=== PATIENT | male | born 1980 | race Caucasian/White ===

== ENCOUNTER 2021-05-06 15:14 | Inpatient (IN) | payer OTHER, SELFPAY ==
[2021-05-06 16:35] VITALS: BP 110/56; PULSE 70; RESP 18; TEMP 36.4; O2SAT 98
[2021-05-06 18:00] VITALS: BP 110/66; PULSE 70; RESP 18; TEMP 36.4; O2SAT 98
--- NOTE | 2021-05-07 | ECG_ITS ---
Test Reason : QTC PRO Blood Pressure : / mmHG Vent. Rate : 069 BPM Atrial Rate : 069 BPM P-R Int : 134 ms QRS Dur : 082 ms QT Int : 390 ms P-R-T Axes : 069 079 058 degrees QTc Int : 417 ms Sinus rhythm with marked sinus arrhythmia Otherwise normal ECG When compared with ECG of 30-MAY-2018 21:28, No significant change was found Referred By: Jessica Edwards Electronically Signed By:TYRONE SANDOVAL
--- NOTE | 2021-05-07 00:26 | PC.ADMIT ---
41 year old male on a CV presented from [facility] with suicidal ideation in the context of recent substance abuse. Patient is disheveled, dysphoric, minimally engaging in interview. South African speaking only. [employer] utilized for assessment. Chief complaint, I want methadone. Reports suicidal ideation with a plan to OD, contracts for safety on the unit. Reports I feel good about his recent suicide attempt. He disclosed his stressors as his recurrent substance abuse (heroin, crack/cocaine and marijuana) and homelessness. Reports AH, denies VH. States that he prefers to sleep and discontinue intake, unit orientation not completed due to patient's mental status and refusal. Orders received per provider covering. Safety checks in place. Agrees to come to staff with needs/concerns.
[2021-05-07 08:15] VITALS: BP 112/68; PULSE 55; RESP 14; TEMP 36.7; O2SAT 97
[2021-05-07 10:21] VITALS: BP 122/74; PULSE 91
[2021-05-07] MEDS: LORazepam 1 MG TABLET PO ×2 (10:21→14:43)
[2021-05-07] MEDS: cloNIDine HCL 0.1 MG TABLET PO ×2 (10:21→14:43)
[2021-05-07] MEDS: Multivitamin TABLET 1 TAB PO (12:40)
[2021-05-07 14:43] VITALS: BP 113/87; PULSE 59
[2021-05-07] MEDS: methADONE HCl 20 MG/2 ML ORAL.CONC 25 MG PO (15:07)
[2021-05-07 16:15] VITALS: BP 105/68; PULSE 80; TEMP 37.1
--- NOTE | 2021-05-07 17:07 | HO.ADDICT_ITS ---
History of Present Illness Date of Service: 05/07/21 Chief Complaint: Major depressive disorder Reason for Consult: Patient requesting re-initiation on methadone therapy. He had been admitted as a transfer from [facility], where he presented with MDD. Requesting physician: Jessica Edwards Discussed with referring provider: Yes Sources of Information: patient interviewed, chart reviewed and crisis/core team assessment reviewed Additional Sources of Information: Patient's RN, Marybeth. [facility] Narrative: Patient is a 41-year-old male, Namibian-speaking only. This filing writer met with patient, along with his RN, who speaks Namibian and served as director medical affairs, as well as addiction RN. Patient is currently homeless. Reports he is in active opioid withdrawals. Reports doing large quantities of heroin, more than 10 bags daily, as well as crack cocaine, and marijuana. Describes active withdrawal symptoms including general body aches, malaise, hot and cold flashes, yawning, anxiety and irritability. Methadone does was verified at 77 mg at an Clinic located on [address] [facility] in [facility]. They reported he last received his dose in December of this year. Patient reports that he did well while on methadone, but that he had relapsed. He is requesting to be started back on it today. Past Psychiatric History: Patient has several scripts in [place] from psychiatrist at [facility] dated in August of this year as well as September of this year. Patient did not elaborate or report any inpatient level of care is to this filing writer. Medical Evaluation Reviewed: Yes Personal & Social History: Patient currently homeless. Review of Systems Review of Systems Unable to obtain a full review of systems due to patient's mental state as well as active opioid withdrawals. Diagnostics Vital Signs (24Hr): Vital Signs - 24 hr 05/06/21 18:00 05/07/21 08:15 05/07/21 10:21 Temperature 97.5 F 98.1 F Pulse Rate 70 55 91 Respiratory Rate 18 14 Blood Pressure 110/66 112/68 122/74 Pulse Oximetry 98 97 05/07/21 14:43 05/07/21 16:15 Temperature 98.8 F Pulse Rate 59 80 Respiratory Rate Blood Pressure 113/87 105/68 Pulse Oximetry Labs Labs: No tox screen was available from either this facility or [facility]. EKG EKG: reviewed EKG Comment: EKG completed earlier today, shows QTC of 417. Mental Status Exam Mental Status Exam Narrative: Unable to obtain a full mental status exam due to patient's withdrawals and somnolence. He did appear to experiencing withdrawals, including restless legs, body aches, yawning, clammy skin, anxiety. A somewhat disheveled appearance unkempt. Poor eye contact. Motor activity was generally calm, however did appear to have some restless legs. [place] in behavior appeared to be calm, somewhat somnolent. Speech was fluent and unimpaired. Mood and affect depressed. Judgment and insight poor. Ambulation not observed. Unable to fully assess for hallucinations, SI, HI, delusional thoughts. Medications Medications Current Medications Generic Name Dose Route Start Last Admin Trade Name Freq PRN Reason Stop Dose Admin Acetaminophen 650 mg 05/07/21 09:40 Acetaminophen 325 Mg Tablet PO Q6H PRN Headache/Pain Mild Scale (1-3) Al Hydroxide/Mg Hydroxide 30 ml 05/07/21 09:40 Magnesium Hydrox/Alum Hydrox 30 Ml Oral.Susp PO Q6H PRN Heartburn/Nausea Clonidine HCl 0.1 mg 05/07/21 10:15 05/07/21 14:43 Clonidine Hcl 0.1 Mg Tablet PO 0.1 mg TID RANDI Administration Protocol Hydroxyzine HCl 25 mg 05/07/21 09:40 Hydroxyzine Hcl 25 Mg Tablet PO BEDTIME PRN Anxiety Lorazepam 1 mg 05/07/21 10:11 05/07/21 14:43 Lorazepam 1 Mg Tablet PO 1 mg Q4H PRN Administration withdrawal Magnesium Hydroxide 30 ml 05/07/21 09:40 Milk Of Magnesia 30 Ml Oral.Susp PO DAILY PRN Constipation Methadone HCl 25 mg 05/08/21 09:00 Methadone Hcl 20 Mg/2 Ml Oral.Conc PO DAILY RANDI Multivitamins/Vitamin C 1 tab 05/07/21 10:30 05/07/21 12:40 Multivitamin Tablet PO 1 tab DAILY RANDI Administration Trazodone HCl 50 mg 05/07/21 09:40 Trazodone Hcl 50 Mg Tablet PO BEDTIME PRN Insomnia Allergies Allergies Allergy/AdvReac Type Severity Reaction Status Date / Time ibuprofen [IBUPROFEN] Allergy Unknown UNK Unverified 05/15/20 19:34 Assessment & Plan Assessment & Plan (1) Opioid use disorder, severe, dependence: Status: Acute Code(s): F11.20 - Opioid dependence, uncomplicated Assessment and Plan: Patient appears to be experiencing opioid withdrawals. Patient has reported he has taken methadone in the past with positive affect. As per RN, patient was confirmed to be a patient at and methadone Clinic, with a dose of 77 mg daily, as recently as December 2020. (2) Cocaine use disorder: Status: Acute Code(s): F14.10 - Cocaine abuse, uncomplicated Assessment and Plan: Patient reports he uses large amounts of cocaine daily, along with heroin. Assessment and Plan: 1. Give methadone 25mg now. 2. Start methadone 25mg daily, on 05/08/21. 3. Patient will most likely require methadone titration up to an effective dose while here. 4. Addiction RN was present, and is aware patient will need to be referred back to [facility] clinic upon discharge. 5. Please note, upon discharge patient will require a last dose letter stating date and dose of last methadone administration while inpatient. This is a requirement of methadone clinic, so as to ensure continuous dosing schedule without interruption. This has been shared with provider Lesia Santiago APRN, via secure electronic messaging. Thank you. Greater than 50% of the session was spent on counseling and/or coordination of care Patient educated on: diagnosis, medication risk/benefits, ECT and therapeutic strategies Informed Consent: understands and further education needed PMFSH Past Medical History Psychiatric History: Substance Abuse History (Heroin, crack cocaine, marijuana.) Family History Pertinent family history: unknown at this time. Social History Social History Household Members: None Housing: Homeless Do you presently have visiting nurse or other home services: No Patient Tobacco Use Status: Current someday Tobacco user Tobacco use type: Cigarette Years Smoked: I don't remember. Smoked in Last 30 Days: Yes Patient Interested in Nicotine Replacement: No Patient Given Instructions on How to Stop Smoking: No Second Hand Smoke Exposure: No Use of substances other than those prescribed or required for medical reasons: Yes Substance Use Type: Crack/Cocaine, Heroin and Marijuana Substance Use Frequency: Daily Last Used Substance Other:: 05/05/21 Currently Displaying Signs/Symptoms of Drug Intoxication Withdrawal: No Any prior treatment program specific to substance use: Yes ( I don't remember when, but I did. ) Have you been hit, kicked, punched, or otherwise hurt by someone within the past year? If so, by whom?: No Do you feel safe in your current relationship?: No Current Relationship Is there a partner from a previous relationship who is making you feel unsafe now?: No Are you made to feel afraid or neglected: No Spiritual Healthcare Practices: Unable to assess due to mental status Advance Directives: No Advance Directives Information Provided: Yes Do you have thoughts of harming others: None Do you have a plan to hurt others: No Plan Recently lost weight without trying: Unsure How much weight loss: Unsure Eating poorly because of decreased appetite: No Nutrition screen score: 4 Nutrition Risks: No Nutritional Risk Poor oral hygiene: Yes service: No Sexual orientation: Straight/Heterosexual
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
[2021-05-07 20:00] VITALS: RESP 16
--- NOTE | 2021-05-07 23:35 | PM.EVENT ---
Event Note Date of Service: 05/07/21 Event Note: attempted to see pt for admission H&P but pt was sleeping
[2021-05-08 03:08] VITALS: BP 119/74; PULSE 64; RESP 16; TEMP 36.4; O2SAT 98
[2021-05-08 08:00] VITALS: PULSE 59
[2021-05-08 08:17] VITALS: BP 116/68; PULSE 59
[2021-05-08] MEDS: LORazepam 1 MG TABLET PO (08:17)
[2021-05-08] MEDS: Multivitamin TABLET 1 TAB PO (08:17)
[2021-05-08] MEDS: methADONE HCl 20 MG/2 ML ORAL.CONC 25 MG PO (08:17)
[2021-05-08] MEDS: cloNIDine HCL 0.1 MG TABLET PO ×3 (08:17→20:21)
--- NOTE | 2021-05-08 12:05 | P.PNPSI_ITS ---
Subjective Subjective Date of Service: 05/08/21 Reason For Visit: Major depressive disorder, opiate and cocaine use Subjective Notes: Conditional Voluntary Healthcare Proxy: No Guardianship: No Medical Problems Affecting Mental Status: No Interim History: Pt seen with his nurse who interprets and his social research assistant. He is in bed, blankets over his head, reports [employer] OD was a suicide attempt. States he is hearing voices telling him to suicide. Voices are saying bad things . Pt does not recall what medications he has used in the past to treat depression/psychosis. Call to [facility] Hx of Gemfibrozil 600 mg bid, Gabapentin 300 mg tid, Trazodone 150 mg hs, Vistaril 50 mg tid prn, Pantoprozole 40 mg daily, Nicotine 21 mg patch and 2 mg gum, Mirtazapine 30 mg hs, Seroquel 200 mg hs and 50 mg bid (these were on hold). Last refill Sep 2020. Pt is a limited historian due to his withdrawal at this time. Medication Compliance: No (last refill Sep 2020.) Side effects from medications: No Attending Groups: No Review of Systems Acute medical concerns: No Medical Review of Systems: unchanged Review of Systems Review of Systems Yes Unobtainable due to mental status Psychiatric: Reports abnormal sleep pattern, Reports depression, Reports auditory hallucinations, Reports hopelessness, Reports paranoia and Reports suicidal ideation Mental Status Exam Mental Status Exam Patient Appearance: Disheveled Patient Orientation: Person and Situation Level of Consciousness: Sedated, Restless and Lethargic Patient Behavior: Guarded, Suspicious, Avoidant, Fatigued and Poor Eye Contact Mood Description: Suspicious, Withdrawn and Depressed Affect Description: Suspicious, Withdrawn and Flat Patient Cognition Impaired: No Ability to Follow Directions: Good Speech Pattern: Spontaneous Speech Memory Description: Episodic Impaired Thought Process: Goal Oriented Thought Content: positive for Goal Oriented and positive for Suicidal Ideation Depressive Symptoms: Diff. Making Decisions, Difficulty Sleeping, Loss of Int. in Activity, Feelings of Worthlessness, Isolating-Friends/Family, Unhappiness, Increased Fatigue, Thoughts of /Suicide, Low Self Esteem, Loss of Energy and Difficulty Concentrating Abnormal Motor Activity Signs and Symptoms: Restlessness Judgement: Fair Diagnostics Vital Signs (24Hr): Vital Signs - 24 hr 05/07/21 14:43 05/07/21 16:15 05/07/21 20:00 Temperature 98.8 F Pulse Rate 59 80 Respiratory Rate 16 Blood Pressure 113/87 105/68 Pulse Oximetry 05/08/21 03:08 05/08/21 08:17 Temperature 97.6 F Pulse Rate 64 59 Respiratory Rate 16 Blood Pressure 119/74 116/68 Pulse Oximetry 98 Labs Results: 05/08/21 12:35 05/08/21 12:35 Medications Medications Current Medications Generic Name Dose Route Start Last Admin Trade Name Karsten PRN Reason Stop Dose Admin Acetaminophen 650 mg 05/07/21 09:40 Acetaminophen 325 Mg Tablet PO Q6H PRN Headache/Pain Mild Scale (1-3) Al Hydroxide/Mg Hydroxide 30 ml 05/07/21 09:40 Magnesium Hydrox/Alum Hydrox 30 Ml Oral.Susp PO Q6H PRN Heartburn/Nausea Clonidine HCl 0.1 mg 05/07/21 10:15 05/08/21 08:17 Clonidine Hcl 0.1 Mg Tablet PO 0.1 mg TID RANDI Administration Protocol Hydroxyzine HCl 25 mg 05/07/21 09:40 Hydroxyzine Hcl 25 Mg Tablet PO BEDTIME PRN Anxiety Lorazepam 1 mg 05/07/21 10:11 05/08/21 08:17 Lorazepam 1 Mg Tablet PO 1 mg Q4H PRN Administration withdrawal Magnesium Hydroxide 30 ml 05/07/21 09:40 Milk Of Magnesia 30 Ml Oral.Susp PO DAILY PRN Constipation Methadone HCl 25 mg 05/08/21 09:00 05/08/21 08:17 Methadone Hcl 20 Mg/2 Ml Oral.Conc PO 25 mg DAILY RANDI Administration Multivitamins/Vitamin C 1 tab 05/07/21 10:30 05/08/21 08:17 Multivitamin Tablet PO 1 tab DAILY RANDI Administration Trazodone HCl 50 mg 05/07/21 09:40 Trazodone Hcl 50 Mg Tablet PO BEDTIME PRN Insomnia Allergies Allergies Allergy/AdvReac Type Severity Reaction Status Date / Time ibuprofen [IBUPROFEN] Allergy Unknown UNK Unverified 05/15/20 19:34 Assessment & Plan Assessment & Plan (1) Severe recurrent major depression w/psychotic features, mood-congruent: Status: Acute Code(s): F33.3 - Major depressive disorder, recurrent, severe with psychotic symptoms (2) Cocaine use disorder: Status: Acute Code(s): F14.10 - Cocaine abuse, uncomplicated (3) Opioid use disorder, severe, dependence: Status: Acute Code(s): F11.20 - Opioid dependence, uncomplicated Assessment and Plan: 41 yo Icelandic speaking male, transfer from [facility], s/p suicide attempt via OD of heroin/cocaine. -Addictions consult much appreciated. Pt has started on Methadone. -Today, he reports OD was with suicidal intent. He reports depressive sx with auditory perceptual alterations, command, telling him to harm himself. Reports a history of christi in addition. -Last med fill Sep 2020, [facility], [facility]. Plan: -Continue Methadone titration per addictions team. -Risperdal 0.5 mg bid -Lamictal 25 mg daily -Pantoprazole 20 mg daily Greater than 50% of the session was spent on counseling and/or coordination of care Informed Consent: further education needed Reason for contiued inpatient stay Substantial Risk for: harm to self, inability to function and rapid de compensation
[2021-05-08 12:50] LABS: MANUAL DIFF FLAG NO
[2021-05-08 12:52] LABS: Basophils Percent Auto 0.2 % (0-2); Eosinophils Percent Auto 0.1 % (0-4); Hematocrit 40.8 % (42-52); Hemoglobin 13.8 g/dl (14.0-18.0); Imm Gran Abs Auto 0.02 X10*3/uL (0.00-0.03); Imm Gran Pct Auto 0.2 % (0.0-0.4); Lymphocytes Absolute Auto 2.3 X10*3/uL (1.2-4.9); Lymphocytes Percent Auto 26.6 % (20-40); Mean Corpuscular HGB Conc 33.8 g/dl (31.0-36.0); Mean Corpuscular Hemoglobin 29.5 pg (27.0-33.0); Mean Corpuscular Volume 87.2 fL (80-98); Mean Platelet Volume 10.4 fL (9.4-12.4); Monocytes Absolute Auto 0.9 X10*3/uL (0.1-1.2); Monocytes Percent Auto 9.9 % (2-11); Neutrophils Absolute Auto 5.4 X10*3/uL (2.0-8.3); Platelet Count 304 X10*3/uL (160-400); Red Blood Count 4.68 X10*6/uL (4.60-5.80); Red Cell Distribution Width 13.2 % (11.0-16.0); White Blood Count 8.6 X10*3/uL (4.8-10.8)
[2021-05-08 13:09] LABS: Alanine Aminotransferase 22 U/L (0-40); Albumin Level 4.3 g/dL (3.5-5.0); Alkaline Phosphatase 83 U/L (39-117); Anion Gap 13 (12-20); Aspartate Amino Transferase 16 U/L (5-37); Bilirubin Total 0.5 mg/dL (0.0-1.0); Blood Urea Nitrogen 15 mg/dL (9-16); Calcium 10.1 mg/dL (8.4-10.2); Carbon Dioxide 25 mmol/L (22-29); Chloride 105 mmol/L (96-108); Cholesterol 180 mg/dL; Estimated Glomerular Filt Rate > 60; Glucose Fasting 95 mg/dL (60-99); HDL Cholesterol 40 mg/dL; LDL Cholesterol Calculated 126 mg/dl; Magnesium 2.3 mg/dL (1.6-2.6); Sodium 139 mmol/L (135-145); Total Protein 7.6 g/dL (6.5-8.0); Triglycerides 70 mg/dL
[2021-05-08 13:27] LABS: Estimated Average Glucose 108 mg/dL; Hemoglobin A1c % 5.4 %
[2021-05-08 13:30] LABS: Free T4 (Free Thyroxine) 0.91 ng/dL (0.71-1.85); Thyroid Stimulating Hormone 0.15 uIU/mL (0.32-4.0)
[2021-05-08 13:48] LABS: Vitamin B12 376 pg/mL (200-900)
[2021-05-08 14:33] VITALS: BP 114/71; PULSE 71
--- NOTE | 2021-05-08 16:31 | P.PNADD_ITS ---
Subjective Subjective Date of Service: 05/08/21 Reason For Visit: Major depressive disorder, opiate and cocaine use Interim History: Patient seen in follow up. Started on methadone 25mg yesterday. Per RN, patient tremulous and diaphoretic this morning prior to receiving methadone dose. Patient laying in bed most of the day. When seen by this medical underwriter patient reporting he was feeling fine . Denies any withdrawal sx, including nausea, loose stools, chills, sweating. Did request small increase in dose for tomorrow. Review of Systems Review of Systems as per HPI Mental Status Exam Mental Status Exam Patient Appearance: Appropriate Patient Orientation: Person, Place, Time and Situation Level of Consciousness: Awake Patient Behavior: Appropriate Mood Description: Withdrawn and Appropriate Affect Description: Withdrawn and Appropriate Patient Cognition Impaired: No Speech Pattern: Clear Hallucinations: None Thought Process: Intact Thought Content: positive for Intact Judgement: Fair Diagnostics Vital Signs (24Hr): Vital Signs - 24 hr 05/07/21 20:00 05/08/21 03:08 05/08/21 08:17 Temperature 97.6 F Pulse Rate 64 59 Respiratory Rate 16 16 Blood Pressure 119/74 116/68 Pulse Oximetry 98 05/08/21 14:33 Temperature Pulse Rate 71 Respiratory Rate Blood Pressure 114/71 Pulse Oximetry Labs Results: 05/08/21 12:35 05/08/21 12:35 Labs: Laboratory Results - last 48 hr 05/08/21 05/08/21 05/08/21 12:35 12:35 12:35 WBC 8.6 RBC 4.68 Hgb 13.8 L Hct 40.8 L MCV 87.2 MCH 29.5 MCHC 33.8 RDW 13.2 Plt Count 304 MPV 10.4 Immature Gran % (Auto) 0.2 Neut % (Auto) 63.0 Lymph % (Auto) 26.6 [place] % (Auto) 9.9 Eos % (Auto) 0.1 Baso % (Auto) 0.2 Lymph # (Auto) 2.3 [place] # (Auto) 0.9 Eos # (Auto) 0.0 Baso # (Auto) 0.0 Abs Immat Gran (auto) 0.02 Absolute Neuts (auto) 5.4 Absolute Nucleated RBC 0.000 Nucleated RBC % (auto) 0.0 Sodium 139 Potassium 4.0 Chloride 105 Carbon Dioxide 25 Anion Gap 13 BUN 15 Creatinine 0.99 Estim Creat Clear Calc TNP Estimated GFR > 60 Fasting Glucose 95 Estimat Average Glucose 108 Hemoglobin A1c % 5.4 Calcium 10.1 Magnesium 2.3 Total Bilirubin 0.5 AST 16 ALT 22 Alkaline Phosphatase 83 Total Protein 7.6 Albumin 4.3 Triglycerides 70 Cholesterol 180 LDL Cholesterol, Calc 126 HDL Cholesterol 40 Vitamin B12 Folate TSH 0.15 L Free T4 0.91 05/08/21 12:35 WBC RBC Hgb Hct MCV MCH MCHC RDW Plt Count MPV Immature Gran % (Auto) Neut % (Auto) Lymph % (Auto) [place] % (Auto) Eos % (Auto) Baso % (Auto) Lymph # (Auto) [place] # (Auto) Eos # (Auto) Baso # (Auto) Abs Immat Gran (auto) Absolute Neuts (auto) Absolute Nucleated RBC Nucleated RBC % (auto) Sodium Potassium Chloride Carbon Dioxide Anion Gap BUN Creatinine Estim Creat Clear Calc Estimated GFR Fasting Glucose Estimat Average Glucose Hemoglobin A1c % Calcium Magnesium Total Bilirubin AST ALT Alkaline Phosphatase Total Protein Albumin Triglycerides Cholesterol LDL Cholesterol, Calc HDL Cholesterol Vitamin B12 376 Folate 14.0 TSH Free T4 Medications Medications Current Medications Generic Name Dose Route Start Last Admin Trade Name Freq PRN Reason Stop Dose Admin Acetaminophen 650 mg 05/07/21 09:40 Acetaminophen 325 Mg Tablet PO Q6H PRN Headache/Pain Mild Scale (1-3) Al Hydroxide/Mg Hydroxide 30 ml 05/07/21 09:40 Magnesium Hydrox/Alum Hydrox 30 Ml Oral.Susp PO Q6H PRN Heartburn/Nausea Clonidine HCl 0.1 mg 05/07/21 10:15 05/08/21 14:33 Clonidine Hcl 0.1 Mg Tablet PO 0.1 mg TID RANDI Administration Protocol Hydroxyzine HCl 25 mg 05/07/21 09:40 Hydroxyzine Hcl 25 Mg Tablet PO BEDTIME PRN Anxiety Lorazepam 1 mg 05/08/21 16:28 Lorazepam 1 Mg Tablet PO BID PRN Anxiety Magnesium Hydroxide 30 ml 05/07/21 09:40 Milk Of Magnesia 30 Ml Oral.Susp PO DAILY PRN Constipation Methadone HCl 30 mg 05/09/21 09:00 Methadone Hcl 20 Mg/2 Ml Oral.Conc PO DAILY RANDI Multivitamins/Vitamin C 1 tab 05/07/21 10:30 05/08/21 08:17 Multivitamin Tablet PO 1 tab DAILY RANDI Administration Trazodone HCl 50 mg 05/07/21 09:40 Trazodone Hcl 50 Mg Tablet PO BEDTIME PRN Insomnia Allergies Allergies Allergy/AdvReac Type Severity Reaction Status Date / Time ibuprofen [IBUPROFEN] Allergy Unknown UNK Unverified 05/15/20 19:34 Assessment & Plan Assessment & Plan (1) Opioid use disorder, severe, dependence: Status: Acute Code(s): F11.20 - Opioid dependence, uncomplicated Assessment and Plan: * methadone increased to 30mg QD (to start 05/09) * May increase additional 5 mg if necessary on Tuesday * lorazepam decreased to 1mg BID ( can be discontinued tmrw as anxiety related to withdrawal sx much improved) * discussed case with covering provider Greater than 50% of the session was spent on counseling and/or coordination of care
[2021-05-08 17:47] VITALS: BP 141/64; PULSE 66; RESP 18; TEMP 36.4; O2SAT 100
[2021-05-08 20:21] VITALS: BP 116/57; PULSE 78
[2021-05-08] MEDS: lamoTRIgine 25 MG TABLET PO (20:21)
[2021-05-08] MEDS: risperiDONE 0.5 MG TABLET PO (20:21)
[2021-05-09] VITALS (7 sets, daily range): BP systolic 92–121; BP diastolic 54–73; PULSE 67–105; RESP 16–18; TEMP 36.2–36.8; O2SAT 98–99
[2021-05-09] MEDS: cloNIDine HCL 0.1 MG TABLET PO ×2 (09:03→21:17)
[2021-05-09] MEDS: Multivitamin TABLET 1 TAB PO (09:03)
[2021-05-09] MEDS: Omeprazole 20 MG CAPSULE.DR PO (09:03)
[2021-05-09] MEDS: risperiDONE 0.5 MG TABLET PO ×2 (09:03→21:17)
[2021-05-09] MEDS: methADONE HCl 20 MG/2 ML ORAL.CONC 30 MG PO (09:04)
--- NOTE | 2021-05-09 16:11 | P.CNHOSGPS_ITS ---
History of Present Illness Data of Consult Service Date: 05/09/21 Requesting physician: Jessica Edwards Primary Care Provider: Salud BALDWIN Reason for consult: Transfer from [facility], routine H&P This is a 41-year-old primarily Czech speaking male. History was obtained to the use of a ui ux web developer. The patient was transferred from [facility] for management of depression with suicidal ideation following an intentional drug overdose. He is also being treated for polysubstance abuse. The medical team was asked to see him in consultation for routine medical evaluation as he was transferred from outside facility. The patient reports withdrawal symptoms but seems that these are improving with current management. A is requesting Ensure and otherwise has no other specific complaints at this time. Review of Systems Review of Systems: Yes all other systems are reviewed and are negative Constitutional: Constitutional: Denies chills and Denies fever(s) Cardiovascular: Cardiovascular: Denies chest pain Respiratory: Respiratory: Denies cough Gastrointestinal: Gastrointestinal: Denies abdominal pain [facility] Medical History Asthma Cocaine use disorder Opioid use disorder, severe, dependence Severe recurrent major depression w/psychotic features, mood-congruent Functional capacity: independent ambulation Family History Other HTN (hypertension) Social History (Updated 05/09/21 @ 16:17 by ARDHA Oliver) Household Members: None Housing: Homeless Do you presently have visiting nurse or other home services: No Alcohol intake: current Alcohol intake frequency: 3 or more drinks per day Patient Tobacco Use Status: Current someday Tobacco user Tobacco use type: Cigarette Years Smoked: I don't remember. Smoked in Last 30 Days: Yes Patient Interested in Nicotine Replacement: No Patient Given Instructions on How to Stop Smoking: No Second Hand Smoke Exposure: No Use of substances other than those prescribed or required for medical reasons: Yes Substance Use Type: Crack/Cocaine, Heroin and Marijuana Substance Use Frequency: Daily Last Used Substance Other:: 05/05/21 Currently Displaying Signs/Symptoms of Drug Intoxication Withdrawal: No Any prior treatment program specific to substance use: Yes ( I don't remember when, but I did. ) Have you been hit, kicked, punched, or otherwise hurt by someone within the past year? If so, by whom?: No Do you feel safe in your current relationship?: No Current Relationship Is there a partner from a previous relationship who is making you feel unsafe now?: No Are you made to feel afraid or neglected: No Spiritual Healthcare Practices: Unable to assess due to mental status Advance Directives: No Advance Directives Information Provided: Yes Do you have thoughts of harming others: None Do you have a plan to hurt others: No Plan Recently lost weight without trying: Unsure How much weight loss: Unsure Eating poorly because of decreased appetite: No Nutrition screen score: 4 Nutrition Risks: No Nutritional Risk Poor oral hygiene: Yes service: No Sexual orientation: Straight/Heterosexual Meds Allergies Allergy/AdvReac Type Severity Reaction Status Date / Time ibuprofen [IBUPROFEN] Allergy Unknown UNK Unverified 05/15/20 19:34 Active Medications: Current Medications Generic Name Dose Route Start Last Admin Trade Name Freq PRN Reason Stop Dose Admin Acetaminophen 650 mg 05/07/21 09:40 Acetaminophen 325 Mg Tablet PO Q6H PRN Headache/Pain Mild Scale (1-3) Al Hydroxide/Mg Hydroxide 30 ml 05/07/21 09:40 Magnesium Hydrox/Alum Hydrox 30 Ml Oral.Susp PO Q6H PRN Heartburn/Nausea Clonidine HCl 0.1 mg 05/07/21 10:15 05/09/21 09:03 Clonidine Hcl 0.1 Mg Tablet PO 0.1 mg TID RANDI Administration Protocol Hydroxyzine HCl 25 mg 05/07/21 09:40 Hydroxyzine Hcl 25 Mg Tablet PO BEDTIME PRN Anxiety Lamotrigine 25 mg 05/08/21 21:00 05/08/21 20:21 Lamotrigine 25 Mg Tablet PO 25 mg BEDTIME ARNDI Administration Lorazepam 1 mg 05/08/21 16:28 Lorazepam 1 Mg Tablet PO BID PRN Anxiety Magnesium Hydroxide 30 ml 05/07/21 09:40 Milk Of Magnesia 30 Ml Oral.Susp PO DAILY PRN Constipation Methadone HCl 30 mg 05/09/21 09:00 05/09/21 09:04 Methadone Hcl 20 Mg/2 Ml Oral.Conc PO 30 mg DAILY RANDI Administration Multivitamins/Vitamin C 1 tab 05/07/21 10:30 05/09/21 09:03 Multivitamin Tablet PO 1 tab DAILY RANDI Administration Omeprazole 20 mg 05/09/21 06:30 05/09/21 09:03 Omeprazole 20 Mg Capsule. PO 20 mg DAILY@0630 RANDI Administration Risperidone 0.5 mg 05/08/21 21:00 05/09/21 09:03 Risperidone 0.5 Mg Tablet PO 0.5 mg BID RANDI Administration Trazodone HCl 50 mg 05/07/21 09:40 Trazodone Hcl 50 Mg Tablet PO BEDTIME PRN Insomnia Results Labs CBC and Chem 7: 05/08/21 12:35 05/08/21 12:35 Assessment and Plan (1) Tobacco dependence: Status: Acute This is a 41-year-old primarily Czech-speaking male with a history of anxiety, depression, asthma and polysubstance abuse admitted to for management depression with suicidal ideation following intentional drug overdose Tobacco dependence Smoking cessation advised NRT Polysubstance abuse Being treated by addiction medicine team Reports daily etoh use, continue treatment per unit protocol Reports h/o HTN although there are no BP meds in med claim history BP currently low. Pt asymptomatic. Encourage PO intake Follow BP closely May need to adjust dose of clonidine if BP remains low Normocytic anemia Chronic. H/H at baseline asthma no acute exacerbation prn albuterol for sob/wheezing There are no other active medical conditions at this time. Thank you for allowing us to participate in the care of this patient. Physical Exam Vital Signs: Last Vital Signs Temp 98.3 F 05/09/21 06:47 Pulse 75 05/09/21 14:00 Resp 16 05/09/21 06:47 BP 92/54 L 05/09/21 14:00 Pulse Ox 99 05/09/21 06:47 Const General: comfortable, alert and awake Nutritional Appearance: well nourished Orientation/consciousness: patient oriented x3 [facility] Head: Yes normocephalic and Yes atraumatic Eyes Sclerae: sclerae normal Resp Effort & Inspection: normal respiratory effort and no respiratory distress Auscultation: clear to auscultation bilaterally Cardio Rate: regular rate Rhythm: regular rhythm GI Palpation (GI): Soft to palpation and nontender Neuro General: patient oriented x3 Cranial nerves: Yes CN's II-XII intact bilaterally and Yes Bilaterally intact EOM present
[2021-05-09] MEDS: LORazepam 1 MG TABLET PO (16:25)
[2021-05-09] MEDS: Nicotine 14 MG PATCH.TD24 TRANSDERMA (16:31)
[2021-05-09] MEDS: lamoTRIgine 25 MG TABLET PO (21:17)
[2021-05-09] MEDS: traZODone HCL 50 MG TABLET PO (21:17)
[2021-05-09] MEDS: hydrOXYzine HCL 25 MG TABLET PO (21:18)
--- NOTE | 2021-05-10 00:27 | HO.PSYCHPN ---
Subjective Subjective Date of Service: 05/09/21 Reason For Visit: Major depressive disorder, opiate and cocaine use Subjective Notes: Gutierrez Warning and Conditional Voluntary Healthcare Proxy: No Guardianship: No Medical Problems Affecting Mental Status: No Interim History: Patient seen and discussed with team. He had a recent addiction consult, methadone dose increased to 30 mg today and ativan decreased (may discontinue tomorrow). Patient evaluated this morning and upon interview he reports he feels depressed, reported withdrawal sx, not attending groups. Says the medications are so so, and that he wants methadone increased again. Says he is experiencing withdrawal sx of sweating, jumping, I cant eat too much. Asks for an ensure order. Reports his sleep is not too much and he is having bad dreams. In the milieu, patient is isolative in behavior, staying in bed. Denies SI/SIB/HI upon inquiry. Denies irritability or assaultive ideation. Says he feels safe. Medication Compliance: Yes Side effects from medications: No Attending Groups: No Review of Systems Medical Review of Systems: unchanged Mental Status Exam Mental Status Exam Narrative: Patient Appearance:?Appropriate Patient Orientation:?Person, Place, Time and Situation Level of Consciousness:?Awake Patient Behavior:?Appropriate Mood Description:?Withdrawn and Appropriate Affect Description:?Withdrawn and Appropriate Patient Cognition Impaired:?No Speech Pattern:?Clear Hallucinations:?None Thought Process:?Intact Thought Content:?positive for Intact Judgement:?Fair Diagnostics Vital Signs (24Hr): Vital Signs - 24 hr 05/09/21 06:47 05/09/21 09:03 05/09/21 14:00 Temperature 98.3 F Pulse Rate 76 67 75 Respiratory Rate 16 Blood Pressure 108/63 118/73 92/54 L Pulse Oximetry 99 05/09/21 16:00 05/09/21 16:29 05/09/21 19:53 Temperature 97.2 F Pulse Rate 77 77 Respiratory Rate 18 18 Blood Pressure 106/65 93/57 L 121/72 Pulse Oximetry 99 98 05/09/21 21:17 Temperature Pulse Rate 105 H Respiratory Rate Blood Pressure 96/65 Pulse Oximetry Labs Results: 05/08/21 12:35 05/08/21 12:35 Labs: Laboratory Results - last 48 hr 05/08/21 05/08/21 05/08/21 12:35 12:35 12:35 WBC 8.6 RBC 4.68 Hgb 13.8 L Hct 40.8 L MCV 87.2 MCH 29.5 MCHC 33.8 RDW 13.2 Plt Count 304 MPV 10.4 Immature Gran % (Auto) 0.2 Neut % (Auto) 63.0 Lymph % (Auto) 26.6 Williams % (Auto) 9.9 Eos % (Auto) 0.1 Baso % (Auto) 0.2 Lymph # (Auto) 2.3 Williams # (Auto) 0.9 Eos # (Auto) 0.0 Baso # (Auto) 0.0 Abs Immat Gran (auto) 0.02 Absolute Neuts (auto) 5.4 Absolute Nucleated RBC 0.000 Nucleated RBC % (auto) 0.0 Sodium 139 Potassium 4.0 Chloride 105 Carbon Dioxide 25 Anion Gap 13 BUN 15 Creatinine 0.99 Estim Creat Clear Calc TNP Estimated GFR > 60 Fasting Glucose 95 Estimat Average Glucose 108 Hemoglobin A1c % 5.4 Calcium 10.1 Magnesium 2.3 Total Bilirubin 0.5 AST 16 ALT 22 Alkaline Phosphatase 83 Total Protein 7.6 Albumin 4.3 Triglycerides 70 Cholesterol 180 LDL Cholesterol, Calc 126 HDL Cholesterol 40 Vitamin B12 Folate TSH 0.15 L Free T4 0.91 05/08/21 12:35 WBC RBC Hgb Hct MCV MCH MCHC RDW Plt Count MPV Immature Gran % (Auto) Neut % (Auto) Lymph % (Auto) Williams % (Auto) Eos % (Auto) Baso % (Auto) Lymph # (Auto) Williams # (Auto) Eos # (Auto) Baso # (Auto) Abs Immat Gran (auto) Absolute Neuts (auto) Absolute Nucleated RBC Nucleated RBC % (auto) Sodium Potassium Chloride Carbon Dioxide Anion Gap BUN Creatinine Estim Creat Clear Calc Estimated GFR Fasting Glucose Estimat Average Glucose Hemoglobin A1c % Calcium Magnesium Total Bilirubin AST ALT Alkaline Phosphatase Total Protein Albumin Triglycerides Cholesterol LDL Cholesterol, Calc HDL Cholesterol Vitamin B12 376 Folate 14.0 TSH Free T4 Medications Medications Current Medications Generic Name Dose Route Start Last Admin Trade Name Freq PRN Reason Stop Dose Admin Acetaminophen 650 mg 05/07/21 09:40 Acetaminophen 325 Mg Tablet PO Q6H PRN Headache/Pain Mild Scale (1-3) Al Hydroxide/Mg Hydroxide 30 ml 05/07/21 09:40 Magnesium Hydrox/Alum Hydrox 30 Ml Oral.Susp PO Q6H PRN Heartburn/Nausea Albuterol Sulfate 1 puff 05/09/21 16:21 Albuterol Sulfate 90 Mcg 8 Gm Inhaler INHALE Q6H PRN Shortness of Breath/Wheezing Clonidine HCl 0.1 mg 05/07/21 10:15 05/09/21 21:17 Clonidine Hcl 0.1 Mg Tablet PO 0.1 mg TID RANDI Administration Protocol Hydroxyzine HCl 25 mg 05/07/21 09:40 05/09/21 21:18 Hydroxyzine Hcl 25 Mg Tablet PO 25 mg BEDTIME PRN Administration Anxiety Lamotrigine 25 mg 05/08/21 21:00 05/09/21 21:17 Lamotrigine 25 Mg Tablet PO 25 mg BEDTIME RANDI Administration Lorazepam 1 mg 05/08/21 16:28 05/09/21 16:25 Lorazepam 1 Mg Tablet PO 1 mg BID PRN Administration Anxiety Magnesium Hydroxide 30 ml 05/07/21 09:40 Milk Of Magnesia 30 Ml Oral.Susp PO DAILY PRN Constipation Methadone HCl 30 mg 05/09/21 09:00 05/09/21 09:04 Methadone Hcl 20 Mg/2 Ml Oral.Conc PO 30 mg DAILY RANDI Administration Multivitamins/Vitamin C 1 tab 05/07/21 10:30 05/09/21 09:03 Multivitamin Tablet PO 1 tab DAILY RANDI Administration Nicotine 14 mg 05/09/21 16:10 05/09/21 16:31 Nicotine 14 Mg Patch.Td24 TRANSDERMA 14 mg DAILY RANDI Administration Omeprazole 20 mg 05/09/21 06:30 05/09/21 09:03 Omeprazole 20 Mg Capsule.Dr PO 20 mg DAILY@0630 RANDI Administration Risperidone 0.5 mg 05/08/21 21:00 05/09/21 21:17 Risperidone 0.5 Mg Tablet PO 0.5 mg BID RANDI Administration Trazodone HCl 50 mg 05/07/21 09:40 05/09/21 21:17 Trazodone Hcl 50 Mg Tablet PO 50 mg BEDTIME PRN Administration Insomnia Allergies Allergies Allergy/AdvReac Type Severity Reaction Status Date / Time ibuprofen [IBUPROFEN] Allergy Unknown UNK Unverified 05/15/20 19:34 Assessment & Plan Assessment & Plan (1) Tobacco dependence: Status: Acute Code(s): F17.200 - Nicotine dependence, unspecified, uncomplicated Assessment and Plan: 41 yo Telugu speaking male, transfer from [facility], s/p suicide attempt via OD of heroin/cocaine. -Addictions consult much appreciated. Pt has started on Methadone. -05/09: He reports his mood is depressed c/o of withdrawal sx, however methadone increased as of today. No other medication changes will monitor for benefit. -Last med fill Sep 2020, [facility], [facility]. Plan: -Continue Methadone titration per addictions team. -Risperdal 0.5 mg bid -Lamictal 25 mg daily -Pantoprazole 20 mg daily Greater than 50% of the session was spent on counseling and/or coordination of care Patient educated on: medication risk/benefits Reason for contiued inpatient stay Substantial Risk for: harm to self and med/psych decompensation
[2021-05-10 07:00] VITALS: BP 132/76; PULSE 80; TEMP 36.4
[2021-05-10] MEDS: methADONE HCl 20 MG/2 ML ORAL.CONC 30 MG PO (08:46)
[2021-05-10] MEDS: Multivitamin TABLET 1 TAB PO (08:47)
[2021-05-10] MEDS: risperiDONE 0.5 MG TABLET PO (08:47)
[2021-05-10] MEDS: Omeprazole 20 MG CAPSULE.DR PO (08:47)
[2021-05-10] MEDS: Nicotine 14 MG PATCH.TD24 TRANSDERMA (08:53)
[2021-05-10] MEDS: Acetaminophen 325 MG TABLET 650 MG PO (09:15)
[2021-05-10] MEDS: LORazepam 1 MG TABLET PO (09:15)
[2021-05-10 11:07] VITALS: BP 100/59; PULSE 66
[2021-05-10 14:38] VITALS: BP 95/66; PULSE 91
[2021-05-10] MEDS: cloNIDine HCL 0.1 MG TABLET PO ×2 (14:38→20:25)
--- NOTE | 2021-05-10 15:05 | P.PNPSI_ITS ---
Subjective Subjective Date of Service: 05/11/21 Reason For Visit: Major depressive disorder, opiate and cocaine use Subjective Notes: Gutierrez Warning and Conditional Voluntary Healthcare Proxy: No Guardianship: No Medical Problems Affecting Mental Status: No Interim History: Patient seen and discussed with team. RN reports his BP was too low to take PRN clonidine, utilized ativan. Has been out of his room, more visible. Patient evaluated this morning and upon interview he reports sleep is the problem, still c/o of feeling restless, sweating. He asks for seroquel discussed that he is on risperdal and he says he prefers seroquel and that risperdal is not working would like to re-start seroquel for sleep. Also asks for trazodone to be increased to 150 mg. Otherwise he says im feeling good, i'm ready to go. Says his appetite is good. Denies mood concerns or questions. In the milieu, patient is isolative in behavior, staying in bed. Denies SI/SIB/HI upon inquiry. Denies irritability or assaultive ideation. Says he feels safe. Medication Compliance: Yes Side effects from medications: No Attending Groups: No Review of Systems Medical Review of Systems: unchanged Mental Status Exam Mental Status Exam Narrative: Narrative:?Patient Appearance:?Appropriate Patient Orientation:?Person, Place, Time and Situation Level of Consciousness:?Awake Patient Behavior:?Appropriate Mood Description:?Withdrawn and Appropriate Affect Description:?Withdrawn and Appropriate Patient Cognition Impaired:?No Speech Pattern:?Clear Hallucinations:?None Thought Process:?Intact Thought Content:?positive for Intact Judgement:?Fair Diagnostics Vital Signs (24Hr): Vital Signs - 24 hr 05/09/21 16:00 05/09/21 16:29 05/09/21 19:53 Temperature 97.2 F Pulse Rate 77 77 Respiratory Rate 18 18 Blood Pressure 106/65 93/57 L 121/72 Pulse Oximetry 99 98 05/09/21 21:17 05/10/21 07:00 05/10/21 11:07 Temperature 97.6 F Pulse Rate 105 H 80 66 Respiratory Rate Blood Pressure 96/65 132/76 100/59 L Pulse Oximetry 05/10/21 14:38 Temperature Pulse Rate 91 Respiratory Rate Blood Pressure 95/66 Pulse Oximetry Labs Results: 05/08/21 12:35 05/08/21 12:35 Medications Medications Current Medications Generic Name Dose Route Start Last Admin Trade Name Freq PRN Reason Stop Dose Admin Acetaminophen 650 mg 05/07/21 09:40 05/10/21 09:15 Acetaminophen 325 Mg Tablet PO 650 mg Q6H PRN Administration Headache/Pain Mild Scale (1-3) Al Hydroxide/Mg Hydroxide 30 ml 05/07/21 09:40 Magnesium Hydrox/Alum Hydrox 30 Ml Oral.Susp PO Q6H PRN Heartburn/Nausea Albuterol Sulfate 1 puff 05/09/21 16:21 Albuterol Sulfate 90 Mcg 8 Gm Inhaler INHALE Q6H PRN Shortness of Breath/Wheezing Clonidine HCl 0.1 mg 05/07/21 10:15 05/10/21 14:38 Clonidine Hcl 0.1 Mg Tablet PO 0.1 mg TID RANDI Administration Protocol Hydroxyzine HCl 25 mg 05/07/21 09:40 05/09/21 21:18 Hydroxyzine Hcl 25 Mg Tablet PO 25 mg BEDTIME PRN Administration Anxiety Lamotrigine 25 mg 05/08/21 21:00 05/09/21 21:17 Lamotrigine 25 Mg Tablet PO 25 mg BEDTIME RANDI Administration Lorazepam 1 mg 05/10/21 11:29 Lorazepam 1 Mg Tablet PO DAILY PRN Anxiety Magnesium Hydroxide 30 ml 05/07/21 09:40 Milk Of Magnesia 30 Ml Oral.Susp PO DAILY PRN Constipation Methadone HCl 30 mg 05/09/21 09:00 05/10/21 08:46 Methadone Hcl 20 Mg/2 Ml Oral.Conc PO 30 mg DAILY RANDI Administration Multivitamins/Vitamin C 1 tab 05/07/21 10:30 05/10/21 08:47 Multivitamin Tablet PO 1 tab DAILY RANDI Administration Nicotine 14 mg 05/09/21 16:10 05/10/21 08:53 Nicotine 14 Mg Patch.Td24 TRANSDERMA 14 mg DAILY RANDI Administration Omeprazole 20 mg 05/09/21 06:30 05/10/21 08:47 Omeprazole 20 Mg Capsule.Dr PO 20 mg DAILY@0630 RANDI Administration Risperidone 0.5 mg 05/08/21 21:00 05/10/21 08:47 Risperidone 0.5 Mg Tablet PO 0.5 mg BID RANDI Administration Trazodone HCl 50 mg 05/07/21 09:40 05/09/21 21:17 Trazodone Hcl 50 Mg Tablet PO 50 mg BEDTIME PRN Administration Insomnia Allergies Allergies Allergy/AdvReac Type Severity Reaction Status Date / Time ibuprofen [IBUPROFEN] Allergy Unknown UNK Unverified 05/15/20 19:34 Assessment & Plan Assessment & Plan (1) Tobacco dependence: Status: Acute Code(s): F17.200 - Nicotine dependence, unspecified, uncomplicated Assessment and Plan: 41 yo Turkmen speaking male, transfer from [facility], s/p suicide attempt via OD of heroin/cocaine. -Addictions consult much appreciated. Pt has started on Methadone. -05/09: He reports his mood is depressed c/o of withdrawal sx, however methadone increased as of today. No other medication changes will monitor for benefit. 05/10: Asks to take seroquel instead of risperdal says in the past he has taken seroquel 25 mg QAM and 50 mg QHS with positive effect, helps with sleep. Will increase PRN trazodone to 100 mg. Will hold clonidine for BP < 90/60 mmHg. Will D/C ativan dose per addiction consult recommendation. -Last med fill Sep 2020, [facility]. Plan: -Continue Methadone titration per addictions team. -Seroquel 50 mg QHS, 25 mg QD -Lamictal 25 mg daily -Pantoprazole 20 mg daily Greater than 50% of the session was spent on counseling and/or coordination of care Patient educated on: medication risk/benefits Reason for contiued inpatient stay Substantial Risk for: rapid decompensation and med/psych decompensation
[2021-05-10 16:57] VITALS: BP 111/59; PULSE 78; RESP 18; TEMP 36.1; O2SAT 98
[2021-05-10] MEDS: Nicotine Polacrilex 2 MG GUM 4 MG BUCCAL ×2 (17:24→19:43)
[2021-05-10 20:00] VITALS: BP 111/69; PULSE 86; RESP 18; TEMP 36.2; O2SAT 99
[2021-05-10 20:25] VITALS: BP 111/69; PULSE 86
[2021-05-10] MEDS: lamoTRIgine 25 MG TABLET PO (20:25)
[2021-05-10] MEDS: QUEtiapine Fumarate 50 MG TABLET PO (20:25)
[2021-05-10] MEDS: traZODone HCL 100 MG TABLET PO (20:25)
[2021-05-11] VITALS (8 sets, daily range): BP systolic 94–126; BP diastolic 55–81; PULSE 62–88; RESP 16–18; TEMP 36.3–36.8; O2SAT 98–99
[2021-05-11] MEDS: LORazepam 1 MG TABLET PO ×2 (02:03→06:39)
[2021-05-11] MEDS: Omeprazole 20 MG CAPSULE.DR PO (06:22)
[2021-05-11] MEDS: methADONE HCl 20 MG/2 ML ORAL.CONC 30 MG PO (08:36)
[2021-05-11] MEDS: Multivitamin TABLET 1 TAB PO (08:37)
[2021-05-11] MEDS: cloNIDine HCL 0.1 MG TABLET PO ×3 (08:37→20:28)
[2021-05-11] MEDS: QUEtiapine Fumarate 25 MG TABLET PO ×2 (08:38→15:11)
--- NOTE | 2021-05-11 10:20 | P.PNPSI_ITS ---
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 No SI or HI; he says he was only momentarily with SI prior to admission when not given Methadone in ED. Pt says not sleeping great and agrees to increase in seroqeul. AH mostly resolved; he said he had a little last night but only because he was feeling emotional which he says is the only times AH is present. reports still in Withdrawal; asks for increase in Methadone saying 60mg was perfect for him; on this dose he stayed sober. He plans to stay with his brother when discharged. Mental Status Exam Mental Status Exam Narrative: Patient Appearance:?Appropriate Patient Orientation:?Person, Place, Time and Situation Level of Consciousness:?Awake Patient Behavior:?Appropriate, cooperative, friendly Mood Description:? better Affect Description:?constricted Patient Cognition Impaired:?No Speech Pattern:?Clear Hallucinations:?little AH last night; currently none Thought Process:?Intact; linear, logical Thought Content:?denies SI/HI Judgement:?Fair Diagnostics Vital Signs (24Hr): Vital Signs - 24 hr 05/10/21 11:07 05/10/21 14:38 05/10/21 16:57 Temperature 96.9 F Pulse Rate 66 91 78 Respiratory Rate 18 Blood Pressure 100/59 L 95/66 111/59 L Pulse Oximetry 98 05/10/21 20:00 05/10/21 20:25 05/11/21 00:00 Temperature 97.1 F 97.3 F Pulse Rate 86 86 82 Respiratory Rate 18 16 Blood Pressure 111/69 111/69 112/60 Pulse Oximetry 99 98 05/11/21 04:00 05/11/21 07:04 05/11/21 08:37 Temperature 97.3 F 97.7 F Pulse Rate 82 70 67 Respiratory Rate 16 18 Blood Pressure 112/60 94/55 L 111/57 L Pulse Oximetry 98 99 Labs Results: 05/08/21 12:35 05/08/21 12:35 Medications Medications Current Medications Generic Name Dose Route Start Last Admin Trade Name Freq PRN Reason Stop Dose Admin Acetaminophen 650 mg 05/07/21 09:40 05/10/21 09:15 Acetaminophen 325 Mg Tablet PO 650 mg Q6H PRN Administration Headache/Pain Mild Scale (1-3) Al Hydroxide/Mg Hydroxide 30 ml 05/07/21 09:40 Magnesium Hydrox/Alum Hydrox 30 Ml Oral.Susp PO Q6H PRN Heartburn/Nausea Albuterol Sulfate 1 puff 05/09/21 16:21 Albuterol Sulfate 90 Mcg 8 Gm Inhaler INHALE Q6H PRN Shortness of Breath/Wheezing Clonidine HCl 0.1 mg 05/07/21 10:15 05/11/21 08:37 Clonidine Hcl 0.1 Mg Tablet PO 0.1 mg TID RANDI Administration Protocol Hydroxyzine HCl 25 mg 05/07/21 09:40 05/09/21 21:18 Hydroxyzine Hcl 25 Mg Tablet PO 25 mg BEDTIME PRN Administration Anxiety Lamotrigine 25 mg 05/08/21 21:00 05/10/21 20:25 Lamotrigine 25 Mg Tablet PO 25 mg BEDTIME RANDI Administration Magnesium Hydroxide 30 ml 05/07/21 09:40 Milk Of Magnesia 30 Ml Oral.Susp PO DAILY PRN Constipation Methadone HCl 30 mg 05/09/21 09:00 05/11/21 08:36 Methadone Hcl 20 Mg/2 Ml Oral.Conc PO 30 mg DAILY RANDI Administration Multivitamins/Vitamin C 1 tab 05/07/21 10:30 05/11/21 08:37 Multivitamin Tablet PO 1 tab DAILY RANDI Administration Nicotine 14 mg 05/09/21 16:10 05/10/21 08:53 Nicotine 14 Mg Patch.Td24 TRANSDERMA 14 mg DAILY RANDI Administration Nicotine Polacrilex 4 mg 05/10/21 16:03 05/10/21 19:43 Nicotine Polacrilex 2 Mg Gum BUCCAL 4 mg Q2H PRN Administration nicotine withdrawal Omeprazole 20 mg 05/09/21 06:30 05/11/21 06:22 Omeprazole 20 Mg Capsule.Dr PO 20 mg DAILY@0630 RANDI Administration Quetiapine Fumarate 50 mg 05/10/21 21:00 05/10/21 20:25 Quetiapine Fumarate 50 Mg Tablet PO 50 mg BEDTIME RANDI Administration Quetiapine Fumarate 25 mg 05/11/21 09:00 05/11/21 08:38 Quetiapine Fumarate 25 Mg Tablet PO 25 mg DAILY RANDI Administration Trazodone HCl 100 mg 05/10/21 18:33 09/12/21 20:25 Trazodone Hcl 100 Mg Tablet PO 100 mg BEDTIME PRN Administration Insomnia Allergies Allergies Allergy/AdvReac Type Severity Reaction Status Date / Time ibuprofen [IBUPROFEN] Allergy Unknown UNK Unverified 05/15/20 19:34 Assessment & Plan Assessment & Plan (1) Tobacco dependence: Status: Acute Code(s): F17.200 - Nicotine dependence, unspecified, uncomplicated Assessment and Plan: 41 yo [place]ian speaking male, transfer from [facility], s/p suicide attempt via OD of heroin/cocaine. -Addictions consult much appreciated. Pt has started on Methadone. -05/09: He reports his mood is depressed c/o of withdrawal sx, however methadone increased as of today. No other medication changes will monitor for benefit. 05/10: Asks to take seroquel instead of risperdal says in the past he has taken seroquel 25 mg QAM and 50 mg QHS with positive effect, helps with sleep. Will increase PRN trazodone to 100 mg. Will hold clonidine for BP < 90/60 mmHg. Will D/C ativan dose per addiction consult recommendation. -Last med fill Sep 2020, [facility], [facility]. mood better; no SI; AH resolved; feels doing better with increased Methadone; discussing dispo w/ SW Plan on 05/11: Methadone was increased to 40mg by addiction consult Increased bedtime seroquel to 75mg for continued trouble sleeping Changed Clonidine to prn for withdrawal/HTN/anxiety; denies HTN when at baseline and pt is heading toward discharge Changed Seroquel 25mg to prn for anxiety -Lamictal 25 mg daily -Pantoprazole 20 mg daily dc'd nicotine patch since pt prefers gum only Greater than 50% of the session was spent on counseling and/or coordination of care Reason for contiued inpatient stay Substantial Risk for: med/psych decompensation
[2021-05-11] MEDS: methADONE HCl 20 MG/2 ML ORAL.CONC 10 MG PO (15:09)
[2021-05-11] MEDS: Nicotine Polacrilex 2 MG GUM 4 MG BUCCAL ×2 (15:10→22:26)
--- NOTE | 2021-05-11 15:54 | P.PNADD_ITS ---
Subjective Subjective Date of Service: 05/11/21 Reason For Visit: Major depressive disorder, opiate and cocaine use Interim History: Patient reporting chills and difficulty sleeping would like to increase dose Denies nausea, vomiting, loose stools Review of Systems Review of Systems: as per HPI. Mental Status Exam Mental Status Exam Patient Appearance: Appropriate Patient Orientation: Person, Place, Time and Situation Level of Consciousness: Awake Patient Behavior: Appropriate Mood Description: Calm Affect Description: Calm Judgement: Fair Diagnostics Vital Signs (24Hr): Vital Signs - 24 hr 05/10/21 16:57 05/10/21 20:00 05/10/21 20:25 Temperature 96.9 F 97.1 F Pulse Rate 78 86 86 Respiratory Rate 18 18 Blood Pressure 111/59 L 111/69 111/69 Pulse Oximetry 98 99 05/11/21 00:00 05/11/21 04:00 05/11/21 07:04 Temperature 97.3 F 97.3 F 97.7 F Pulse Rate 82 82 70 Respiratory Rate 16 16 18 Blood Pressure 112/60 112/60 94/55 L Pulse Oximetry 98 98 99 05/11/21 08:37 05/11/21 15:09 Temperature Pulse Rate 67 88 Respiratory Rate Blood Pressure 111/57 L 117/81 Pulse Oximetry Labs Results: 05/08/21 12:35 05/08/21 12:35 Medications Medications Current Medications Generic Name Dose Route Start Last Admin Trade Name Freq PRN Reason Stop Dose Admin Acetaminophen 650 mg 05/07/21 09:40 05/10/21 09:15 Acetaminophen 325 Mg Tablet PO 650 mg Q6H PRN Administration Headache/Pain Mild Scale (1-3) Al Hydroxide/Mg Hydroxide 30 ml 05/07/21 09:40 Magnesium Hydrox/Alum Hydrox 30 Ml Oral.Susp PO Q6H PRN Heartburn/Nausea Albuterol Sulfate 1 puff 05/09/21 16:21 Albuterol Sulfate 90 Mcg 8 Gm Inhaler INHALE Q6H PRN Shortness of Breath/Wheezing Clonidine HCl 0.1 mg 05/11/21 13:46 05/11/21 15:09 Clonidine Hcl 0.1 Mg Tablet PO 0.1 mg TID PRN Administration withdrawal symptoms/HTN Protocol Hydroxyzine HCl 25 mg 05/07/21 09:40 05/09/21 21:18 Hydroxyzine Hcl 25 Mg Tablet PO 25 mg BEDTIME PRN Administration Anxiety Lamotrigine 25 mg 05/08/21 21:00 05/10/21 20:25 Lamotrigine 25 Mg Tablet PO 25 mg BEDTIME RANDI Administration Magnesium Hydroxide 30 ml 05/07/21 09:40 Milk Of Magnesia 30 Ml Oral.Susp PO DAILY PRN Constipation Methadone HCl 40 mg 05/12/21 09:00 Methadone Hcl 20 Mg/2 Ml Oral.Conc PO DAILY RANDI Multivitamins/Vitamin C 1 tab 05/07/21 10:30 05/11/21 08:37 Multivitamin Tablet PO 1 tab DAILY RANDI Administration Nicotine Polacrilex 4 mg 05/10/21 16:03 05/11/21 15:10 Nicotine Polacrilex 2 Mg Gum BUCCAL 4 mg Q2H PRN Administration nicotine withdrawal Omeprazole 20 mg 05/09/21 06:30 05/11/21 06:22 Omeprazole 20 Mg Capsule. PO 20 mg DAILY@0630 RANDI Administration Quetiapine Fumarate 75 mg 05/11/21 21:00 Quetiapine Fumarate 25 Mg Tablet PO BEDTIME RANDI Quetiapine Fumarate 25 mg 05/11/21 13:43 05/11/21 15:11 Quetiapine Fumarate 25 Mg Tablet PO 25 mg Q6H PRN Administration anxiety Trazodone HCl 100 mg 05/10/21 18:33 05/10/21 20:25 Trazodone Hcl 100 Mg Tablet PO 100 mg BEDTIME PRN Administration Insomnia Allergies Allergies Allergy/AdvReac Type Severity Reaction Status Date / Time ibuprofen [IBUPROFEN] Allergy Unknown UNK Unverified 05/15/20 19:34 Assessment & Plan Assessment & Plan (1) Opioid use disorder, severe, dependence: Status: Acute Code(s): F11.20 - Opioid dependence, uncomplicated Assessment and Plan: * additional 10mg ordered for today (total of 40mg) * order changed to 40mg QD starting tomorrow Greater than 50% of the session was spent on counseling and/or coordination of care
[2021-05-11] MEDS: QUEtiapine Fumarate 25 MG TABLET 75 MG PO (20:27)
[2021-05-11] MEDS: lamoTRIgine 25 MG TABLET PO (20:27)
[2021-05-11] MEDS: traZODone HCL 100 MG TABLET PO (21:33)
[2021-05-12 04:00] VITALS: BP 113/66; PULSE 63; TEMP 36.1; O2SAT 100
[2021-05-12] MEDS: Omeprazole 20 MG CAPSULE.DR PO (06:02)
[2021-05-12] MEDS: methADONE HCl 20 MG/2 ML ORAL.CONC 40 MG PO (09:00)
[2021-05-12] MEDS: Multivitamin TABLET 1 TAB PO (09:00)
[2021-05-12] MEDS: Nicotine Polacrilex 2 MG GUM 4 MG BUCCAL ×2 (09:21→14:06)
[2021-05-12] MEDS: cloNIDine HCL 0.1 MG TABLET PO ×2 (09:21→14:06)
[2021-05-12] MEDS: QUEtiapine Fumarate 25 MG TABLET PO (09:21)
--- NOTE | 2021-05-12 13:40 | PM.PSYDC ---
DS: Providers Provider Date of Service: 05/12/21 Date of admission: 05/06/21 15:14 Date of discharge: 05/12/21 Primary care physician: Salud Mckeon Admitting clinician: Jessica Edwards Attending physician on admission: Kings Trivedi Consults: 05/07/21 11:58 Addiction Medicine Routine Consulting Provider: Nata Queen Reason for consultation: Pt would like to restart Methadone-last dose December 2020. Has provider been notified: No 05/07/21 17:51 Consult to Hospitalist Routine Consulting Provider: Hospitalist Reason For Exam: Transfer from [facility] Attending physician on discharge: Kings Trivedi Discharging clinician: Jessica Edwards DS: Diagnosis Discharge Diagnosis (1) Opioid use disorder, severe, dependence: Status: Acute DS: Medications Discharge Medications Home Medications: Previous Rx's Medication Instructions Recorded albuterol sulfate 90 mcg/actuation 1 puff INHALATION Q6H PRN #5 g 05/12/21 aerosol inhaler (Ventolin HFA) lamotrigine 25 mg tablet 25 mg PO BEDTIME #30 tab 05/12/21 mirtazapine 15 mg tablet (Remeron) 15 mg PO BEDTIME #14 tab 05/12/21 multivitamin (Daily-Hong) 1 tab PO DAILY #30 tab 05/12/21 naloxone 4 mg/actuation nasal 4 mg INTRANASAL Q2M PRN #2 ea 05/12/21 spray (Narcan) nicotine (polacrilex) 2 mg gum 4 mg BUCCAL Q2H PRN #30 ea 05/12/21 omeprazole 20 mg capsule,delayed 20 mg PO DAILY@0630 #30 cap 05/12/21 release quetiapine 100 mg tablet (Seroquel) 100 mg PO BEDTIME #30 tab 05/12/21 Mental Status Exam Mental Status Exam Patient Appearance: Appropriate Patient Orientation: Person, Place, Time and Situation Level of Consciousness: Awake Patient Behavior: Appropriate Mood Description: Calm Affect Description: Calm Judgement: Fair Data Data Completed and Pending Completed studies during hospitalization [Text1]: 05/08/21 05/08/21 05/08/21 12:35 12:35 12:35 WBC 8.6 RBC 4.68 Hgb 13.8 L Hct 40.8 L MCV 87.2 MCH 29.5 MCHC 33.8 RDW 13.2 Plt Count 304 MPV 10.4 Immature Gran % (Auto) 0.2 Neut % (Auto) 63.0 Lymph % (Auto) 26.6 Williams % (Auto) 9.9 Eos % (Auto) 0.1 Baso % (Auto) 0.2 Lymph # (Auto) 2.3 Williams # (Auto) 0.9 Eos # (Auto) 0.0 Baso # (Auto) 0.0 Abs Immat Gran (auto) 0.02 Absolute Neuts (auto) 5.4 Absolute Nucleated RBC 0.000 Nucleated RBC % (auto) 0.0 Sodium 139 Potassium 4.0 Chloride 105 Carbon Dioxide 25 Anion Gap 13 BUN 15 Creatinine 0.99 Estim Creat Clear Calc TNP Estimated GFR > 60 Fasting Glucose 95 Estimat Average Glucose 108 Hemoglobin A1c % 5.4 Calcium 10.1 Magnesium 2.3 Total Bilirubin 0.5 AST 16 ALT 22 Alkaline Phosphatase 83 Total Protein 7.6 Albumin 4.3 Triglycerides 70 Cholesterol 180 LDL Cholesterol, Calc 126 HDL Cholesterol 40 Vitamin B12 Folate TSH 0.15 L Free T4 0.91 05/08/21 12:35 WBC RBC Hgb Hct MCV MCH MCHC RDW Plt Count MPV Immature Gran % (Auto) Neut % (Auto) Lymph % (Auto) Williams % (Auto) Eos % (Auto) Baso % (Auto) Lymph # (Auto) Williams # (Auto) Eos # (Auto) Baso # (Auto) Abs Immat Gran (auto) Absolute Neuts (auto) Absolute Nucleated RBC Nucleated RBC % (auto) Sodium Potassium Chloride Carbon Dioxide Anion Gap BUN Creatinine Estim Creat Clear Calc Estimated GFR Fasting Glucose Estimat Average Glucose Hemoglobin A1c % Calcium Magnesium Total Bilirubin AST ALT Alkaline Phosphatase Total Protein Albumin Triglycerides Cholesterol LDL Cholesterol, Calc HDL Cholesterol Vitamin B12 376 Folate 14.0 TSH Free T4 DS: Summary Hospital Course Hospital Course: 41 yo male, found in the community unresponsive, with a history of opioid use disorder and severe recurrent major depression. Pt reports OD prior to admit with intent to as he is not able to find resources to meet his needs he reports. Pt spent the first days of his admission in withdrawal. He met with the addictions team who initiated Methadone. Psychiatric medications were re-titrated as he had not been taking them since earlier this year he reported. Nursing and Social Service teams worked with pt to assist him in managing with withdrawal, re-establishing his regime, working on skills to manage psychiatric symptoms and on aftercare planning. Pt, at the end of his admission planned a return to work. He accepted out patient referrals and will attend Methadone Clinic with N. He is aware that titration of Lamictal and Remeron will most likely be required to keep up with managment of his symptoms. Upon discharge, he denied SI plan or intent, stating he just needed resources to get his care back on schedule. Time spent discussing smoking cessation with patient: 3 to 10 minutes Status at Discharge Cognitive/behavioral status at discharge: Alert, oriented, denies SI plan or intent, mood stable, non-psychotic Functional status at discharge: independent ambulation Overall status at discharge: patient is progressing back to baseline Time Spent with Patient Time attestation: Total time spent providing and/or coordinating discharge services: 35 Time spent: Greater than 30 minutes Discharge Plan Discharge Anticipated Discharge Date/Time: 05/12/21 14:00 Patient Disposition: Home, Self-Care Discharge Diagnosis: Recurrent Major Depression, Severe Opiate Use Disorder-Severe, Dependence, now on Methadone Rx Tobacco Use Disorder, Severe, Dependence Referrals: [facility] [Other] - 05/13/21 9:00 am ([facility] Referral Patient needs to follow-up with [facility] after discharge regarding referral to [facility] program.) [facility] [Other] - 1 Week (Patient signed release, but agrees that he will follow-up with services after discharge Patient provided with phone number to [facility] services.) Salud Mckeon [Primary Care Provider] - 1 Week Discharge Medications: New multivitamin [Daily-Hong] Tablet 1 tab PO DAILY Qty: 30 RF: 0 nicotine (polacrilex) 2 mg Gum 4 mg buccal Q2H PRN (Reason: nicotine withdrawal) Qty: 30 RF: 0 lamotrigine 25 mg Tablet 25 mg PO BEDTIME Qty: 30 RF: 0 omeprazole 20 mg Capsule,Delayed Release(Dr/Ec) 20 mg PO DAILY@0630 Qty: 30 RF: 0 albuterol sulfate [Ventolin HFA] 90 mcg/actuation Hfa Aerosol Inhaler 1 puff inhalation Q6H PRN (Reason: Shortness Of Breath/Wheezing) Qty: 5 RF: 0 Narcan 4 mg/actuation spray,non-aerosol 4 mg intranasal Q2M PRN (Reason: opioid overdose) Qty: 2 RF: 0 quetiapine [Seroquel] 100 mg tablet 100 mg PO BEDTIME Qty: 30 RF: 0 mirtazapine [Remeron] 15 mg tablet 15 mg PO BEDTIME Qty: 14 RF: 0 Discharge Orders: Discharge Order (Routine); Ordered 05/12/21 Ordered By: Jessica Edwards Diet: advance to usual diet Activity on Discharge: As tolerated Stand Alone Forms: Patient Portal Discharge page Care Plan Goals: Sobriety Mood Stabilization Health Concerns: Recurrent Major Depression, Severe, with Psychosis Opioid use disorder, severe, dependence, currently on Methadone therapy. Tobacco use disorder-severe, dependence-accepting of nicotine replacement therapy Plan of Treatment: Take medications as directed Follow up with scheduled appointments. -Lamictal will need to be increased -Remeron will need to be assessed for increase as well. Return to [facility] for ongoing care. Assessment: I am feeling better. I am not going to commit suicide, I love my life and my children-I did this to get help. I have been denied help before so I had to do this to get help, to get Methadone. Give me all the positive numbers (resources) you have, I will call them. Alert, oriented, euthymic, wanting to leave to return to his work. Denies SI, HI. Denies perceptual alterations. Willing to attend follow up appts. Patient Instructions: Methadone (By mouth), Lamotrigine (By mouth), Mirtazapine (By mouth), Quetiapine (By mouth), Naloxone (Into the nose) Discharge Date/Time: 05/12/21 14:32
== END 2021-05-12 14:32 | disposition home or self-care (01) | DRG 751 ==
PROVIDERS: Admitting Provider Psychiatry & Neurology Psychiatry; Visit Provider Clinical Nurse Specialist Psychiatric/Mental Health, Adult
DX: F33.3 Major depressive disorder, recurrent, severe with psychotic symptoms (principal); D64.9 Anemia, unspecified; F11.23 Opioid dependence with withdrawal; F17.210 Nicotine dependence, cigarettes, uncomplicated; Z71.6 Tobacco abuse counseling; T40.2X5A Adverse effect of other opioids, initial encounter; Y92.9 Unspecified place or not applicable; F14.10 Cocaine abuse, uncomplicated; Z88.6 Allergy status to analgesic agent; Z79.899 Other long term (current) drug therapy
CPT/HCPCS: 36415; 80053; 80061; 82607; 82746; 83036; 83735; 84439; 84443; 85025; 93005